=== PATIENT | male | born 1950 | race Caucasian/White ===

== ENCOUNTER 2020-02-18 19:13 | Observation (INO) | payer MEDICARE, BC ==
[~2020-02-18] VITALS: Ht 177.8 cm; Wt 76.7 kg
[2020-02-18] MEDS ORDERED: HYDR25TA6 PO (19:40)
[2020-02-18] MEDS ORDERED: BUDE10.2 INH (19:40)
[2020-02-18] MEDS ORDERED: ALBU8.5H8 INH (19:40)
[2020-02-18] MEDS ORDERED: FELO5TAB4 PO (19:40)
--- NOTE | 2020-02-18 19:56 | NUR ---
PT BIB AMBULANCE FROM [facility] FOR LEFT SIDED CHEST PAIN THAT COMES AND GOES. PAIN STARTED LAST NIGHT AND RESOLVED. PT HAD ELEVATED TROP OF 0.2. 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 PT DENIES PAIN AT THIS TIME. CALL LIGHT IN REACH
[2020-02-18 20:26] LABS: TROPONIN I 0.864 ng/mL (0.000-0.045)
--- NOTE | 2020-02-18 20:28 | NUR ---
PTS TROP ELEVATED TO 0.8. MD AWARE. PT SENIES PAIN. PT TO BE ADMITTED. VSS. CALL LIGHT IN REACH
[2020-02-18 21:19] LABS: ALANINE AMINOTRANSFERASE 31 U/L (12-78); ALBUMIN 3.8 g/dL (3.4-5.0); ANION GAP 9 mmol/L (5-15); CALCIUM 9.3 mg/dL (8.5-10.1); CHLORIDE 109 mmol/L (98-107); CREATININE 0.93 mg/dL (0.7-1.3)
[2020-02-18 21:21] LABS: ALKALINE PHOSPHATASE 73 U/L (45-117); BILIRUBIN,TOTAL 0.6 mg/dL (0.2-1.0); TOTAL PROTEIN 7.4 g/dL (6.4-8.2)
--- NOTE | 2020-02-18 22:05 | NUR ---
PT BACK FROM [place]
[2020-02-18] MEDS ORDERED: OMNIPAQUE 350 MG/ML, 100ML BOTTLE ONE (22:16)
[2020-02-18 23:02] VITALS: BP 154/100
[2020-02-18 23:37] VITALS: BP 147/95
[2020-02-18] MEDS: ALBUTEROL HFA 90 MCG/SPRAY INH SCH (23:45)
[2020-02-19] MEDS ORDERED: ENOXAPARIN 80 MG/0.8 ML SQ SCH (00:30)
[2020-02-19] MEDS ORDERED: POTASSIUM CHLORIDE 40 MEQ in LACTATED RINGERS 1,000 ML IV SCH (00:31)
[2020-02-19] MEDS ORDERED: DIPHENHYDRAMINE 50 MG CAPSULE PO PRN (01:00)
[2020-02-19] MEDS ORDERED: MELATONIN 5 MG TABLET PO PRN (01:00)
[2020-02-19] MEDS ORDERED: POLYETHYLENE GLYCOL 17 GM PACKET PO PRN (01:00)
[2020-02-19] MEDS ORDERED: ONDANSETRON 2MG/ML, 2ML IVPush PRN (01:00)
[2020-02-19] MEDS ORDERED: BISACODYL 10 MG SUPP PR PRN (01:00)
[2020-02-19] MEDS ORDERED: morphine SULFATE 10 MG/ML, 1ML IVPush PRN (01:00)
[2020-02-19] MEDS ORDERED: GUAIFENESIN/DM 200-20MG, 10ML UDC PO PRN (01:00)
[2020-02-19] MEDS: CEFTRIAXONE PMX 1GM/50ML 50 ML IV SCH (01:32)
[2020-02-19 02:32] LABS: BASOPHILS # (AUTO) 0.06 x10^3/uL (0-0.1); BASOPHILS % (AUTO) 1 % (0-1); EOSINOPHILS # (AUTO) 0.34 x10^3/uL (0-0.4); EOSINOPHILS % (AUTO) 4 % (1-7); LYMPHOCYTES # (AUTO) 2.22 x10^3/uL (1-3.4); LYMPHOCYTES % (AUTO) 23 % (22-44); MD NO; MEAN CORPUSCULAR HEMOGLOBIN 32.4 pg (27.5-34.5); MEAN CORPUSCULAR HGB CONC 33.6 g/dL (33.2-36.2); MEAN CORPUSCULAR VOLUME 96.3 fL (81-97); MEAN PLATELET VOLUME 7.7 fL (7.4-10.4); MONOCYTES # (AUTO) 0.98 x10^3/uL (0.2-0.8); MONOCYTES % (AUTO) 10 % (2-9); NEUTROPHILS # (AUTO) 5.92 x10^3/uL (1.8-6.8); NEUTROPHILS % (AUTO) 62 % (42-75); PLATELET COUNT 292 x10^3/uL (130-400); RED BLOOD COUNT 4.57 x10^6/uL (4.38-5.82); RED CELL DISTRIBUTION WIDTH 14.3 % (9.4-14.8)
[2020-02-19 02:46] LABS: ALANINE AMINOTRANSFERASE 30 U/L (12-78); ALBUMIN 3.5 g/dL (3.4-5.0); ANION GAP 8 mmol/L (5-15); CHLORIDE 108 mmol/L (98-107); CHOLESTEROL, TOTAL 175 mg/dL (140-239); CREATININE 0.81 mg/dL (0.7-1.3)
[2020-02-19 02:48] LABS: ALKALINE PHOSPHATASE 69 U/L (45-117); BILIRUBIN,TOTAL 0.7 mg/dL (0.2-1.0); CHOL/HDL RATIO 2.7; HDL CHOL % 37 % (26-37); HDL CHOLESTEROL (DIRECT) 65 mg/dL (40-60); LDL CHOLESTEROL,CALCULATED 88 mg/dL (54-169); LDL/HDL RATIO 1.4 (0.5-3.0); TRIGLYCERIDES 108 mg/dL (50-200); VLDL CHOLESTEROL 22 mg/dL (0-25)
[2020-02-19] MEDS: DOXYCYCLINE 100 MG in DEXTROSE 5% 250 ML IV SCH ×2 (03:30→13:50)
[2020-02-19 03:32] VITALS: BP 128/87
[2020-02-19] MEDS: ALBUTEROL HFA 90 MCG/SPRAY INH SCH ×4 (06:06→21:00)
[2020-02-19] MEDS: ASPIRIN 81 MG TABLET EC PO SCH (06:45)
[2020-02-19 07:27] VITALS: BP 136/80
[2020-02-19] MEDS ORDERED: POTASSIUM CHLORIDE 20 MEQ TAB.ER.PRT PO ONE (08:30)
[2020-02-19] MEDS ORDERED: HYDROCHLOROTHIAZIDE 25 MG TABLET PO SCH (09:00)
[2020-02-19] MEDS ORDERED: NITROGLYCERIN 0.4 MG BOTTLE (25 TABS) SL PRN (09:00)
[2020-02-19] MEDS ORDERED: AMLODIPINE 5 MG TABLET PO SCH (09:00)
[2020-02-19] MEDS: LISINOPRIL 10 MG TABLET PO SCH (09:49)
[2020-02-19] MEDS: METOPROLOL SUCCINATE 25 MG TAB.ER.24H PO SCH (09:52)
[2020-02-19] MEDS: FLUTICASONE/VILANTEROL 100-25MCG/INH INH SCH ×2 (09:52→17:13)
[2020-02-19] MEDS: SENNA/DOCUSATE TABLET PO SCH (09:53)
[2020-02-19] MEDS: SODIUM CHLORIDE 0.9% 1,000 ML IV SCH ×6 (09:53→21:16)
[2020-02-19] MEDS ORDERED: ACETAMINOPHEN 325 MG TABLET PO PRN (11:00)
[2020-02-19] MEDS ORDERED: HEPARIN 1,000 UNITS/ML, 10ML ONE (12:20)
[2020-02-19] MEDS ORDERED: FENTANYL PF 100 MCG/2ML ONE (12:20)
[2020-02-19] MEDS ORDERED: MIDAZOLAM 1 MG/ML, 5ML ONE (12:20)
[2020-02-19] MEDS ORDERED: LIDOCAINE-MPF 1%, 5ML ONE (12:20)
[2020-02-19] MEDS ORDERED: BIVALIRUDIN 250 MG ONE (12:20)
[2020-02-19] MEDS ORDERED: VERAPAMIL 2.5 MG/ML, 2ML ONE (12:20)
[2020-02-19] MEDS ORDERED: TICAGRELOR 90 MG TABLET ONE (12:20)
[2020-02-19 14:43] VITALS: BP 149/91
[2020-02-19 19:27] VITALS: BP 133/89
[2020-02-19] MEDS ORDERED: TICAGRELOR 90 MG TABLET PO SCH (21:00)
[2020-02-19] MEDS ORDERED: ATORVASTATIN 40 MG TABLET PO SCH (21:00)
[2020-02-20] MEDS: SODIUM CHLORIDE 0.9% 1,000 ML IV SCH ×6 (00:53→11:02)
[2020-02-20 01:04] VITALS: BP 136/95
[2020-02-20] MEDS: CEFTRIAXONE PMX 1GM/50ML 50 ML IV SCH (01:06)
[2020-02-20] MEDS: DOXYCYCLINE 100 MG in DEXTROSE 5% 250 ML IV SCH (02:02)
[2020-02-20 05:27] LABS: ANION GAP 8 mmol/L (5-15); CALCIUM 9.3 mg/dL (8.5-10.1); CHLORIDE 109 mmol/L (98-107); CREATININE 0.88 mg/dL (0.7-1.3)
[2020-02-20] MEDS: ASPIRIN 81 MG TABLET EC PO SCH (06:11)
[2020-02-20] MEDS: METOPROLOL SUCCINATE 25 MG TAB.ER.24H PO SCH (06:11)
[2020-02-20] MEDS: ALBUTEROL HFA 90 MCG/SPRAY INH SCH ×2 (06:12→11:12)
[2020-02-20 07:20] VITALS: BP 128/81
[2020-02-20] MEDS: LISINOPRIL 10 MG TABLET PO SCH (08:22)
[2020-02-20] MEDS: SENNA/DOCUSATE TABLET PO SCH (08:22)
[2020-02-20] MEDS ORDERED: PRASUGREL 10 MG TABLET PO SCH (12:00)
[2020-02-20 12:24] VITALS: BP 131/84
[2020-02-20] MEDS ORDERED: CEFD300C37 PO (12:33)
[2020-02-20] MEDS ORDERED: PRAS10TA4 PO (12:33)
[2020-02-20] MEDS ORDERED: METO25TA91 PO (12:33)
[2020-02-20] MEDS ORDERED: ATOR40TA78 PO (12:33)
[2020-02-20] MEDS ORDERED: DOXY100T PO (12:33)
[2020-02-20] MEDS ORDERED: ASPI81TA45 PO (12:33)
[2020-02-20] MEDS ORDERED: LISI-167 PO (12:33)
== END 2020-02-20 13:35 | disposition home or self-care (01) ==
LOC: ED 19:57 → EDIP 21:28 → INTOOBSV 21:28 → 5SO 22:59 → OBSVTOIN 02-19 15:28 → INTOOBSV 02-19 15:28 → DCLOUNGE 02-20 13:15
PROVIDERS: ADMIT Family Medicine; ATTEND Hospitalist
DX: I21.4 Non-ST elevation (NSTEMI) myocardial infarction (principal); J18.9 Pneumonia, unspecified organism; I10 Essential (primary) hypertension; E78.5 Hyperlipidemia, unspecified; C43.9 Malignant melanoma of skin, unspecified; E87.6 Hypokalemia; I25.110 Atherosclerotic heart disease of native coronary artery with unstable angina pectoris; J44.9 Chronic obstructive pulmonary disease, unspecified; Z79.899 Other long term (current) drug therapy; Z85.47 Personal history of malignant neoplasm of testis
CPT/HCPCS: 36415; 71275; 80048; 80053; 80061; 83735; 84443; 84484; 85025; 93005; 93306; 93458; 96365; 96366; 96367; 96368; 96372; 99156; 99157; 99285; C1725; C1769; C1874; C1887; C1894; C9600; G0378; J0583; J0696; J1644; J1650; J2250; J3010; J3480; J7030; J7060; J7120; Q9967